=== PATIENT | female | born 1950 | race Caucasian/White ===

== ENCOUNTER 2020-06-07 09:48 | Emergency (ER) | payer MEDICARE, OTHER ==
[~2020-06-07] VITALS: Ht 157.5 cm; Wt 53.1 kg
[~2020-06-07 09:48] MED LIST: AMBIEN5 MG PO; BACTROBAN CREAM15 GM TOP; CRESTOR40 MG PO; ECOTRIN81 MG PO; EFFEXOR XR150 MG PO; ESTRIOL TOP; FISH OIL + D31 EACH PO; IMDUR ER TAB 3030 MG PO; NORCO 5-325 TA1 EACH PO; OMEPRAZOLE40 MG PO; PERCOCET 10-321 EACH PO; VITAMIN B-121000 MC3 PO; VITAMIN D1000 UNI1 PO; VITAMIN D31000 UNI1 PO; [UNRECOGNIZED DRUG - OTHER]; [UNRECOGNIZED DRUG - OTHER] TOP
[2020-06-07 11:21] LABS: HEMOGLOBIN 15.3 gm/dl (12.3-15.3); RED BLOOD COUNT 5.06 M/UL (4.00-5.10); WHITE BLOOD COUNT 8.1 K/UL (4.5-11.0)
[2020-06-07 11:49] LABS: BUN/CREATININE RATIO 15 (0-10)
[2020-06-07] MEDS ORDERED: EFFEXOR XR 150150 MG PO (15:10)
[2020-06-07] MEDS ORDERED: ISOSORBIDE MONO60 MG PO (15:10)
[2020-06-07] MEDS ORDERED: CRESTOR40 MG PO (15:10)
[2020-06-07] MEDS ORDERED: FISH OIL 1,0001 EACH PO (15:11)
[2020-06-07] MEDS ORDERED: OMEPRAZOLE40 MG PO (15:11)
[2020-06-07] MEDS ORDERED: GABAPENTIN300 MG PO (15:11)
[2020-06-07] MEDS ORDERED: ADULT LOW DOSE81 MG PO (15:11)
[2020-06-07] MEDS ORDERED: VITAMIN D250 MCG PO (15:12)
[2020-06-07] MEDS ORDERED: VITAMIN E100 UNIT PO (15:12)
[2020-06-07] MEDS ORDERED: VITAMIN C500 M4 PO (15:12)
[2020-06-07] MEDS ORDERED: CALCIUM500 M1 PO (15:13)
[2020-09-19] MEDS ORDERED: LOW DOSE ASPIRI81 MG PO (11:09)
[2020-09-19] MEDS ORDERED: CRESTOR40 MG PO (11:10)
[2020-09-19] MEDS ORDERED: GABAPENTIN300 MG PO ×3 (11:11→11:13)
[2020-09-19] MEDS ORDERED: EFFEXOR XR150 MG PO (11:11)
[2020-09-19] MEDS ORDERED: ISOSORBIDE MONO30 MG PO (11:13)
[2020-09-19] MEDS ORDERED: ISOSORBIDE MONO60 MG PO (11:14)
[2020-09-19] MEDS ORDERED: METOPROLOL SUCC50 MG PO (11:15)
[2020-09-19] MEDS ORDERED: NITROGLYCERIN0.4 MG SL (11:15)
[2020-09-19] MEDS ORDERED: OMEGA FISH OIL PO ×2 (11:16→11:17)
[2020-09-19] MEDS ORDERED: OMEPRAZOLE40 MG PO (11:18)
[2020-09-19] MEDS ORDERED: OXYBUTYNIN CHLO10 MG PO (11:19)
[2020-09-19] MEDS ORDERED: VENTOLIN HFA 66.7 GM INH (11:19)
[2020-09-19] MEDS ORDERED: VIT D3 PO (11:20)
[2020-09-19] MEDS ORDERED: VIT E PO (11:21)
== END 2020-06-07 17:36 | disposition left against medical advice (07) ==
LOC: ER1 09:48 → CDU 12:15 → ER1 12:15 → CDU 12:37 → ER1 17:36
PROVIDERS: Emergency Medicine
DX: I25.110 Atherosclerotic heart disease of native coronary artery with unstable angina pectoris (principal); I10 Essential (primary) hypertension; E78.5 Hyperlipidemia, unspecified; I25.10 Atherosclerotic heart disease of native coronary artery without angina pectoris; Z95.1 Presence of aortocoronary bypass graft; Z90.710 Acquired absence of both cervix and uterus; Z20.822 Contact with and (suspected) exposure to COVID-19
CPT/HCPCS: ECHO; 0240U; 71045; 80053; 82550; 82553; 83874; 83880; 84443; 84484; 85025; 85379; 85610; 85730; 93005; 93306; 99285

== ENCOUNTER → 2020-06-27 | Outpatient (CLI) | payer MEDICARE ==
[~2020-06-27] MED LIST changes: +ADULT LOW DOSE81 MG PO; +CALCIUM500 M1 PO; +EFFEXOR XR 150150 MG PO; +FISH OIL 1,0001 EACH PO; +GABAPENTIN300 MG PO; +ISOSORBIDE MONO30 MG PO; +ISOSORBIDE MONO60 MG PO; +LOW DOSE ASPIRI81 MG PO; +METOPROLOL SUCC50 MG PO; +NITROGLYCERIN0.4 MG SL; +OMEGA FISH OIL PO; +OXYBUTYNIN CHLO10 MG PO; +VENTOLIN HFA 66.7 GM INH; +VIT D3 PO; +VIT E PO; +VITAMIN C500 M4 PO; +VITAMIN D250 MCG PO; +VITAMIN E100 UNIT PO
== END ==
LOC: HEART 5 06-24 09:15
DX: I25.10 Atherosclerotic heart disease of native coronary artery without angina pectoris (principal); R07.9 Chest pain, unspecified
CPT/HCPCS: 78452; A9502; J2785

== ENCOUNTER → 2020-07-22 | Outpatient (CLI) | payer MEDICARE, OTHER | LOC: HEART 5 14:27 | DX: J44.9 Chronic obstructive pulmonary disease, unspecified (principal); F17.210 Nicotine dependence, cigarettes, uncomplicated | CPT/HCPCS: 94010 ==

== ENCOUNTER → 2020-08-20 | Outpatient (CLI) | payer MEDICARE | LOC: KOH-I 12:14 | DX: F17.210 Nicotine dependence, cigarettes, uncomplicated (principal); R91.8 Other nonspecific abnormal finding of lung field | CPT/HCPCS: 71271 ==

== ENCOUNTER → 2020-09-19 | Outpatient (CLI) | payer MEDICARE ==
[2020-09-19 09:02] LABS: HEMOGLOBIN 14.4 gm/dl (12.3-15.3); RED BLOOD COUNT 4.73 M/UL (4.00-5.10); WHITE BLOOD COUNT 7.7 K/UL (4.5-11.0)
[2020-09-19 09:29] LABS: BUN/CREATININE RATIO 20 (0-10)
== END ==
LOC: CATH 07:20
PROVIDERS: Internal Medicine Cardiovascular Disease
DX: I25.10 Atherosclerotic heart disease of native coronary artery without angina pectoris (principal); F17.210 Nicotine dependence, cigarettes, uncomplicated; I25.119 Atherosclerotic heart disease of native coronary artery with unspecified angina pectoris; H81.10 Benign paroxysmal vertigo, unspecified ear; K21.9 Gastro-esophageal reflux disease without esophagitis; G47.33 Obstructive sleep apnea (adult) (pediatric); G25.81 Restless legs syndrome; F32.9 Major depressive disorder, single episode, unspecified; E78.00 Pure hypercholesterolemia, unspecified; Z95.1 Presence of aortocoronary bypass graft; Z98.61 Coronary angioplasty status; Z79.82 Long term (current) use of aspirin; Z79.899 Other long term (current) drug therapy; Z90.710 Acquired absence of both cervix and uterus; Z90.49 Acquired absence of other specified parts of digestive tract
CPT/HCPCS: 36415; 71045; 80048; 85025; 85610; 93005; C1769; C1887; C1894; J1644; J2250; J3010; J7030; Q9965

== ENCOUNTER → 2021-02-25 | Outpatient (CLI) | payer MEDICARE | LOC: KOH-I 09:00 | DX: M47.26 Other spondylosis with radiculopathy, lumbar region (principal); R91.8 Other nonspecific abnormal finding of lung field | CPT/HCPCS: 71250; 72148 ==

== ENCOUNTER → 2021-03-07 | Outpatient (CLI) | payer MEDICARE | LOC: KOH-I 10:20 | DX: S66.195A Other injury of flexor muscle, fascia and tendon of left ring finger at wrist and hand level, initial encounter (principal); M19.042 Primary osteoarthritis, left hand; M65.842 Other synovitis and tenosynovitis, left hand | CPT/HCPCS: 73218 ==

== ENCOUNTER 2021-03-23 14:57 | Emergency (ER) | payer MEDICARE, OTHER ==
[2021-03-23 16:08] LABS: HEMOGLOBIN 14.3 gm/dl (12.3-15.3); RED BLOOD COUNT 4.68 M/UL (4.00-5.10); WHITE BLOOD COUNT 4.8 K/UL (4.5-11.0)
[2021-03-23 16:30] LABS: BUN/CREATININE RATIO 12 (0-10)
[2021-03-23] MEDS ORDERED: BENZONATATE200 MG PO (17:51)
[2021-04-10] MEDS ORDERED: OMEPRAZOLE40 MG PO (13:52)
[2021-04-10] MEDS ORDERED: CRESTOR40 MG PO (13:53)
[2021-04-10] MEDS ORDERED: GABAPENTIN300 MG PO (13:53)
[2021-04-10] MEDS ORDERED: ISOSORBIDE MONO30 MG PO (13:54)
[2021-04-10] MEDS ORDERED: METOPROLOL SUCC50 MG PO (13:54)
[2021-04-10] MEDS ORDERED: VENLAFAXINE HC150 MG PO (13:55)
[2021-04-10] MEDS ORDERED: OXYBUTYNIN CHLO10 MG PO (13:56)
[2021-04-10] MEDS ORDERED: VITAMIN E PO (13:57)
[2021-04-10] MEDS ORDERED: VITAMIN D350 MCG PO (13:58)
[2021-04-10] MEDS ORDERED: ZINC50 M2 PO (13:58)
[2021-04-10] MEDS ORDERED: MULTI-VITAMIN1 EACH PO (13:58)
[2021-04-10] MEDS ORDERED: VITAMIN C1000 MG PO (13:59)
[2021-04-16] MEDS ORDERED: HYDROCODON-ACE1 EAC4 PO (13:30)
== END 2021-03-23 17:47 | disposition home or self-care (01) ==
LOC: ER1 14:57
PROVIDERS: Physician Assistant
DX: R07.89 Other chest pain (principal); R05.9 Cough, unspecified; Z95.1 Presence of aortocoronary bypass graft; E78.5 Hyperlipidemia, unspecified; Z20.822 Contact with and (suspected) exposure to COVID-19; I51.9 Heart disease, unspecified; F17.200 Nicotine dependence, unspecified, uncomplicated
CPT/HCPCS: 71045; 80053; 82550; 82553; 83874; 84484; 85025; 93005; 99285; U0002

== ENCOUNTER → 2021-04-10 | Outpatient (CLI) | payer MEDICARE ==
[~2021-04-10] MED LIST changes: +BENZONATATE200 MG PO; +MULTI-VITAMIN1 EACH PO; +VENLAFAXINE HC150 MG PO; +VITAMIN C1000 MG PO; +VITAMIN D350 MCG PO; +VITAMIN E PO; +ZINC50 M2 PO
[2021-04-10 13:06] LABS: HEMOGLOBIN 13.9 gm/dl (12.3-15.3); RED BLOOD COUNT 4.62 M/UL (4.00-5.10); WHITE BLOOD COUNT 7.6 K/UL (4.5-11.0)
[2021-04-10 13:32] LABS: BUN/CREATININE RATIO 17 (0-10)
== END ==
LOC: OPSV2 12:28
PROVIDERS: Orthopaedic Surgery
DX: Z01.818 Encounter for other preprocedural examination (principal); S56.416A Strain of extensor muscle, fascia and tendon of left ring finger at forearm level, initial encounter; J44.9 Chronic obstructive pulmonary disease, unspecified; R05.9 Cough, unspecified; Z87.891 Personal history of nicotine dependence; R94.31 Abnormal electrocardiogram [ECG] [EKG]
CPT/HCPCS: 71046; 80048; 85025; 93005

== ENCOUNTER → 2021-04-16 | Day surgery (SDC) | payer MEDICARE ==
[~2021-04-16] VITALS: Ht 157.5 cm; Wt 55.8 kg
[~2021-04-16] MED LIST changes: +HYDROCODON-ACE1 EAC4 PO
== END | disposition home or self-care (01) ==
LOC: OR 07:31
PROVIDERS: Orthopaedic Surgery
PROC: 0LS80ZZ Reposition Left Hand Tendon, Open Approach (ICD-10-PCS; principal; 2021-04-16 12:00)
DX: M66.242 Spontaneous rupture of extensor tendons, left hand (principal); Z20.822 Contact with and (suspected) exposure to COVID-19; I10 Essential (primary) hypertension; E78.5 Hyperlipidemia, unspecified; K21.9 Gastro-esophageal reflux disease without esophagitis; K57.30 Diverticulosis of large intestine without perforation or abscess without bleeding; K44.9 Diaphragmatic hernia without obstruction or gangrene; I25.10 Atherosclerotic heart disease of native coronary artery without angina pectoris; J44.9 Chronic obstructive pulmonary disease, unspecified; G47.30 Sleep apnea, unspecified; M79.7 Fibromyalgia; M81.0 Age-related osteoporosis without current pathological fracture; G89.29 Other chronic pain; G43.909 Migraine, unspecified, not intractable, without status migrainosus; F17.210 Nicotine dependence, cigarettes, uncomplicated; Z79.82 Long term (current) use of aspirin; Z79.899 Other long term (current) drug therapy; Z95.1 Presence of aortocoronary bypass graft; Z95.5 Presence of coronary angioplasty implant and graft
CPT/HCPCS: C1713; J0690; J2704; J3010; J7030; J7120

== ENCOUNTER → 2021-07-29 | Outpatient (CLI) | payer MEDICARE | LOC: KOH-I 13:00 | DX: R91.8 Other nonspecific abnormal finding of lung field (principal) | CPT/HCPCS: 71250 ==

== ENCOUNTER 2021-09-11 23:44 | Observation (INO) | payer MEDICARE, OTHER ==
[~2021-09-11] VITALS: Ht 157.5 cm; Wt 52.6 kg
[~2021-09-11 23:44] MED LIST changes: +GABAPENTIN600 MG PO; +METOPROLOL TART50 MG PO; +OMEPRAZOLE20 MG PO; +VITAMIN D3250 MC2 PO; -VITAMIN D350 MCG PO
[2021-09-12 00:31] LABS: HEMOGLOBIN 13.4 gm/dl (12.3-15.3); RED BLOOD COUNT 4.47 M/UL (4.00-5.10); WHITE BLOOD COUNT 7.3 K/UL (4.5-11.0)
[2021-09-12 00:52] LABS: BUN/CREATININE RATIO 16 (0-10)
[2021-09-12] MEDS ORDERED: ABILIFY5 MG PO (12:41)
[2021-09-12] MEDS ORDERED: TRAZODONE HCL50 MG PO (12:42)
[2021-09-12] MEDS ORDERED: ALENDRONATE SOD70 MG PO (12:43)
[2021-09-12] MEDS ORDERED: PROLIA INJ60 MG/1 ML SC (12:44)
[2021-09-12] MEDS ORDERED: VITAMIN E1000 UNI1 PO (12:49)
[2021-09-12] MEDS ORDERED: PROVENTIL HFA6.7 GM INH (15:52)
[2021-09-12] MEDS ORDERED: AMLODIPINE BESYL5 MG PO (15:52)
== END 2021-09-12 17:07 | disposition home or self-care (01) ==
LOC: ER1 23:44 → CDU 09-12 01:16 → M/S 09-12 01:16
PROVIDERS: Family Medicine; ADMIT Internal Medicine
DX: R07.89 Other chest pain (principal); E78.5 Hyperlipidemia, unspecified; I10 Essential (primary) hypertension; G89.29 Other chronic pain; I25.10 Atherosclerotic heart disease of native coronary artery without angina pectoris; Z95.1 Presence of aortocoronary bypass graft
CPT/HCPCS: 36415; 71045; 80053; 82550; 82553; 83735; 83880; 84100; 84439; 84443; 84484; 84550; 85025; 93005; 96374; 99285; G0378; J3480

== ENCOUNTER → 2021-10-24 | Outpatient (CLI) | payer MEDICARE, OTHER ==
[~2021-10-24] MED LIST changes: +ABILIFY5 MG PO; +ALENDRONATE SOD70 MG PO; +AMLODIPINE BESYL5 MG PO; +PROLIA INJ60 MG/1 ML SC; +PROVENTIL HFA6.7 GM INH; +TRAZODONE HCL50 MG PO; +VITAMIN E1000 UNI1 PO
== END ==
LOC: ECHO 10-03 11:15 → NM 10-03 11:15
DX: I25.119 Atherosclerotic heart disease of native coronary artery with unspecified angina pectoris (principal); R94.39 Abnormal result of other cardiovascular function study
CPT/HCPCS: 78452; 93017; A9502; J2785

== ENCOUNTER → 2021-11-05 | Outpatient (CLI) | payer MEDICARE, OTHER | LOC: EMI 15:24 | DX: G43.109 Migraine with aura, not intractable, without status migrainosus (principal); R51.9 Headache, unspecified; H53.9 Unspecified visual disturbance; R90.82 White matter disease, unspecified | CPT/HCPCS: 70551 ==